=== PATIENT | male | born 1955 | race Caucasian/White ===

== ENCOUNTER 2017-01-19 07:25 | Emergency (ER) | payer MEDICARE, OTHER ==
[2017-01-19 08:21] VITALS: BP 155/88
--- NOTE | 2017-01-19 08:27 | UC ---
Throat Pain/Nasal Gautam HPI - HPI Summary HPI Summary: TEN DAYS OF NASAL CONGESTION, FACIAL PRESSURE, AND PRODUCTIVE COUGH. DID NOT TAKE BLOOD PRESSURE MEDICATION THIS MORNING. IS SUPPOSED TO HAVE BACK SURGERY SOON, WOULD LIKE TO FEEL BETTER SO THAT HE CAN SCHEDULE SURGERY. - History of Current Complaint Chief Complaint: UCRespiratory Stated Complaint: COUGH,SORE THROAT Time Seen by Provider: 01/19/17 08:00 Hx Obtained From: Patient, Family/Ophthalmic Aide - VIA TELEPHONE Onset/Duration: Gradual Onset, Lasting Weeks, Still Present Severity: Moderate Cough: Productive Associated Signs & Symptoms: Positive: Hoarseness, Sinus Discomfort, Nasal Discharge, Fever - Epiglottits Risk Factors Epiglottis Risk Factors: Negative - Allergies/Home Medications Allergies/Adverse Reactions: Allergies Allergy/AdvReac Type Severity Reaction Status Date / Time chavez george AdvReac blindness, Uncoded 01/19/17 07:39 blackout pepto bismol AdvReac Nausea And Uncoded 01/19/17 07:39 Vomiting Home Medications: Home Medications Pravastatin Sodium [Pravachol] 80 mg PO DAILY 01/19/17 [History Confirmed ] Ramipril CAP* [Altace CAP*] 10 mg PO DAILY 01/19/17 [History Confirmed 01/19/17] PMH/Surg Hx/FS Hx/Imm Hx Previously Healthy: Yes - Surgical History Surgical History: Yes Surgery Procedure, Year, and Place: 2007 & 2011 BILATERAL CATARACT EXTRACTION WITH IOL IMPLANTS, [facility] [place]. 2010 BILATERAL CARPAL TUNNEL RELEASE, [facility]. 1979' LEFT INGUINAL HERNIA REPAIR, [place], [place]. 2008 LEFT SHOULDER SURGERY, [facility]. 2010 DECOMPRESSIVE LUMBAR LAMINECTOMY L4/5, WITH BILATERAL FORAMINOTOMIES L4/5, [facility] [place]. 10/20/2013 RIGHT COCHLEAR IMPLANT, [facility] - Family History Known Family History: Positive: None Negative: Respiratory Disease - Social History Lives: With Family Alcohol Use: Occasionally Substance Use Type: None Substance Use Comment - Amount & Last Used: Every Other Day Smoking Status (MU): Former Smoker Type: Cigarettes Amount Used/How Often: 1 PPD Length of Time of Smoking/Using Tobacco: 43 Years Have You Smoked in the Last Year: Yes When Did the Patient Quit Smoking/Using Tobacco: 11/22/16 - Immunization History Most Recent Influenza Vaccination: February 2015 Most Recent Tetanus Shot: UNKNOWN Most Recent Pneumonia Vaccination: NEVER Review of Systems Constitutional: Fever Skin: Negative Eyes: Negative ENT: Nasal Discharge, Sinus Congestion, Sinus Pain/Tenderness Respiratory: Cough Cardiovascular: Negative Gastrointestinal: Negative Genitourinary: Negative Motor: Negative Neurovascular: Negative Musculoskeletal: Negative Neurological: Negative Psychological: Negative All Other Systems Reviewed And Are Negative: Yes Physical Exam Triage Information Reviewed: Yes Appearance: No Pain Distress, Well-Nourished, Ill-Appearing - MILDLY Vital Signs: Initial Vital Signs Temp 99.5 F 01/19/17 07:41 Pulse 71 01/19/17 07:41 Resp 16 01/19/17 07:41 BP 185/94 01/19/17 07:41 Pulse Ox 97 01/19/17 07:41 Vital Signs Reviewed: Yes Eye Exam: Normal ENT: Positive: Hearing grossly normal, Nasal congestion, TM bulging, TM dull Dental Exam: Normal Neck exam: Normal Neck: Positive: Supple, Nontender, No Lymphadenopathy Respiratory Exam: Normal Respiratory: Positive: Chest non-tender, Lungs clear, Normal breath sounds, No respiratory distress, No accessory muscle use Cardiovascular Exam: Normal Cardiovascular: Positive: RRR, No Murmur, Pulses Normal Abdominal Exam: Normal Musculoskeletal Exam: Normal Musculoskeletal: Positive: Strength Intact, ROM Intact, No Edema Neurological Exam: Normal Psychological Exam: Normal Skin Exam: Normal Throat Pain/Nasal Course/Dx - Differential Dx/Diagnosis Differential Diagnosis/HQI/PQRI: Pharyngitis, Sinusitis, Tonsillitis, URI Provider Diagnoses: SINUSITIS; ELEVATED BLOOD PRESSURE Discharge - Discharge Plan Condition: Stable Disposition: HOME Prescriptions: Amoxicillin/Clavulanate TAB* [Augmentin TAB 875*] 875 mg PO BID #20 tab Benzonatate CAP* [Tessalon 100 MG CAP*] 100 mg PO TID PRN #15 cap PRN Reason: Cough Patient Education Materials: Sinusitis (ED) Referrals: Dino Barahona MD [Primary Care Provider] - Additional Instructions: TODAY YOUR BLOOD PRESSURE WAS SIGNIFICANTLY ELEVATED. YOU STATED THAT YOU WERE UNABLE TO TAKE YOUR BLOOD PRESSURE MEDICATION. UPON RETURNING HOME PLEASE TAKE YOUR BLOOD PRESSURE MEDICATION, ALSO PLEASE RECHECK YOUR BLOOD PRESSURE THIS AFTERNOON. NORMAL BLOOD PRESSURE RANGE IS 120/80 TO 140/90. IF YOUR BLOOD PRESSURE REMAINS ELEVATED, PLEASE CONTACT YOUR PRIMARY CARE PHYSICIAN, YOU MAY NEED AN ADJUSTMENT IN YOUR CURRENT THERAPY.
== END 2017-01-19 08:22 | disposition home or self-care (01) ==
LOC: UCCORT 07:25
DX: J32.9 Chronic sinusitis, unspecified (principal); R03.0 Elevated blood-pressure reading, without diagnosis of hypertension; Z98.42 Cataract extraction status, left eye; Z98.41 Cataract extraction status, right eye; Z96.1 Presence of intraocular lens; Z87.891 Personal history of nicotine dependence
CPT/HCPCS: 99212; G0463

== ENCOUNTER 2017-07-20 08:36 | Emergency (ER) | payer MEDICARE, OTHER ==
[2017-07-20 09:53] VITALS: BP 144/84
--- NOTE | 2017-07-20 10:23 | UC ---
Abdominal Pain Male HPI - HPI Summary HPI Summary: left lower quadrant pain for the past 3 days, initially attributed to his dog jumping up on him. Has had persistent pain. Thinks that this is similar to a past episode where he was given miralax for abdominal pain which relieved with stool passage. Reviewed 2016 note, and pain was in the RUQ. Passed stool this morning, passage seemed sluggish. No nausea or vomiting. Appetite normal. States past work up of hematuria, but he does not know the outcome. His thinks that the work up was not complete. Colonsocopy within the past several year. Past left inguinal hernia repair x 2. - History of Current Complaint Chief Complaint: UCGI Stated Complaint: LFT SIDE LOWER ABD/THIGH PAIN Time Seen by Provider: 07/20/17 09:55 Onset/Duration: Gradual Onset, Lasting Days - 3 Severity Initially: Moderate Severity Currently: Moderate Pain Intensity: 7 Location: Discrete At: LLQ Radiates: No Character: Aching Aggravating Factor(s): Movement Alleviating Factor(s): Rest, Position - lying on his back gives relief, increases with side lying. Associated Signs And Symptoms: Positive: Cough, Constipation - passing stools, but reports that it seems sluggish. Similar Episode/Dx As:: constipation. - Risk Factors Testicular Torsion: Negative Cardiac Risk Factors: Hypertension, Smoking - Allergies/Home Medications Allergies/Adverse Reactions: Allergies Allergy/AdvReac Type Severity Reaction Status Date / Time chavez vazquez AdvReac blindness, Uncoded 07/20/17 09:44 blackout pepto bismol AdvReac Nausea And Uncoded 07/20/17 09:44 Vomiting Home Medications: Home Medications Albuterol HFA INHALER* [Ventolin HFA Inhaler*] 1 - 2 puff INH Q4H PRN 07/20/17 [ History Confirmed 07/20/17] Fluticasone-Salmeterol 250-50* [Advair Diskus 250-50*] 1 puff INH BID 07/20/17 [ History Confirmed 07/20/17] PMH/Surg Hx/FS Hx/Imm Hx - Additional Past Medical History Additional PMH: bilaterl hearing aides since young age Cardiovascular History: Hypertension Respiratory History: Other - Heavy smoker. Other Respiratory History: smoker, cough observed today consistent with chronic bronchitis. GI/ History: Gastroesophageal Reflux - Surgical History Surgical History: Yes Surgery Procedure, Year, and Place: 2007 & 2011 BILATERAL CATARACT EXTRACTION WITH IOL IMPLANTS, [facility] [place]. 2010 BILATERAL CARPAL TUNNEL RELEASE, [facility]. 1979' LEFT INGUINAL HERNIA REPAIR, [place], [place]. 2008 LEFT SHOULDER SURGERY, [facility]. 2010 DECOMPRESSIVE LUMBAR LAMINECTOMY L4/5, WITH BILATERAL FORAMINOTOMIES L4/5, [facility] [place]. 10/20/2013 RIGHT COCHLEAR IMPLANT, [facility] - Family History Known Family History: Positive: None Negative: Respiratory Disease - Social History Alcohol Use: Occasionally Substance Use Type: None Substance Use Comment - Amount & Last Used: Every Other Day Smoking Status (MU): Heavy Every Day Tobacco Smoker Type: Cigarettes Amount Used/How Often: 1/2 PPD Length of Time of Smoking/Using Tobacco: 43 Years Have You Smoked in the Last Year: Yes When Did the Patient Quit Smoking/Using Tobacco: 11/22/16 - Immunization History Most Recent Influenza Vaccination: February 2015 Most Recent Tetanus Shot: UNKNOWN Most Recent Pneumonia Vaccination: NEVER Review of Systems Constitutional: Negative Skin: Negative Eyes: Negative ENT: Negative Respiratory: Cough, Other - chronic smoking, cough observed today. Cardiovascular: Negative Gastrointestinal: Negative Genitourinary: Hematuria - not present today, but did have in the past. Motor: Negative Neurovascular: Negative Musculoskeletal: Negative Neurological: Negative Psychological: Negative All Other Systems Reviewed And Are Negative: Yes Physical Exam Triage Information Reviewed: Yes Appearance: Ill-Appearing - looks chronically unwell, Pain Distress - moderate. Vital Signs: Initial Vital Signs Temp 99.1 F 07/20/17 09:48 Pulse 74 07/20/17 09:48 Resp 18 07/20/17 09:48 BP 144/84 07/20/17 09:48 Pulse Ox 97 07/20/17 09:48 Eyes: Positive: Conjunctiva Clear ENT: Positive: Normal ENT inspection, Pharynx normal Neck: Positive: Supple, Nontender, No Lymphadenopathy Respiratory: Positive: Lungs clear, Normal breath sounds Abdomen Description: Positive: No Organomegaly, Soft, Guarding - with palpation of the left lower quadrant. No rebound. No crossed tenderness.. Negative: CVA Tenderness (R), CVA Tenderness (L) Bowel Sounds: Positive: Present Neurological Exam: Normal Neurological: Positive: Alert, Muscle Tone Normal Abd Pain Male Course/Dx - Course Course Of Treatment: advised that he go to the ER for evaluation of possible diverticulitis. Agrees to go to [facility] - Differential Dx/Clinical Impression Differential Diagnosis/HQI/PQRI: Appendicitis, Bowel Obstruction, Constipation, Diverticulitis Provider Diagnoses: left lower quadrant pain, possible diverticulitis. - Physician Notification/Consults Discussed Patient Care With: Austin Atkinson MD Time Discussed With Above Provider: 10:37 Instructed by Provider To: MD Will See In ED Discharge - Discharge Plan Condition: Stable Disposition: TRANS HIGHER LVL OF CARE FAC Patient Education Materials: Acute Abdominal Pain (ED) Referrals: No Primary Care Phys,NOPCP [Primary Care Provider] - Additional Instructions: As discussed, to diagnose your abdominal pain, please go to the [facility] for evaluation. Please go directly there.
== END 2017-07-20 10:45 | disposition short-term general hospital (02) ==
LOC: UCCORT 08:36
DX: R10.32 Left lower quadrant pain (principal); I10 Essential (primary) hypertension; Z88.8 Allergy status to other drugs, medicaments and biological substances; Z87.891 Personal history of nicotine dependence
CPT/HCPCS: 81003; 99212; G0463